=== PATIENT | male | born 1930 | race Caucasian/White ===

== ENCOUNTER 2019-07-12 16:17 | Inpatient (IN) ==
[2019-07-12] MEDS ORDERED: NS 1,000 ML IV ONE ×2 (17:22→18:53)
[2019-07-12 17:35] LABS: INR 1.23; PROTIME 16.2 Seconds (11.0-16.0)
[2019-07-12 17:36] LABS: PTT 34.7 Seconds (22.3-41.8)
[2019-07-12 17:38] LABS: BASO# 0.02 X1000 (0.0-0.2); BASO% 0.1 % (0.0-0.8); HEMATOCRIT 32.5 % (42.0-52.0); HEMOGLOBIN 10.9 g/dL (14.0-18.0); IMM GRAN# 0.11 X1000 (0.0-0.04); IMM GRAN% 0.5 % (0.0-0.5); LYMPH# 0.48 X1000 (1.2-3.4); MCH 30.9 PG (27-31); MCHC 33.5 g/dL (33-37); MCV 92.1 FL (81-99); MONO# 0.43 X1000 (0.11-0.59); MONO% 1.8 % (1.7-9.3); MPV 9.7 FL (7.4-10.4); NEUT# 23.27 X1000 (1.4-6.5); NEUT% 95.6 % (42.2-75.2); PLT 246 X1000 (130-400); RBC 3.53 XMIL (4.7-6.1); RDW 12.2 % (11.5-14.5); WBC 24.31 X1000 (4.8-10.8)
--- NOTE | 2019-07-12 17:40 | Diag Imaging Result Doc PS360 ---
EXAM: CHEST-1 VIEW 07/12/2019 HISTORY: weakness TECHNIQUE: AP portable erect at 1723 COMMENT: There is increased interstitial markings. The heart size and pulmonary vascularity are within normal limits. There are no previous radiographic studies available for comparison, however in comparison with the topogram from the CT of 11/13/2018 there has been no significant change in the appearance of the opacity in the right apex which was described on the CT exam. The basilar interstitial markings were also increased previously. The possibility of superimposed interstitial pulmonary edema cannot be excluded however. IMPRESSION: Questionable pulmonary edema. Electronically signed by Viral Leahy 07/12/2019 5:38 PM
[2019-07-12 17:48] LABS: BILIRUBIN URINE NEGATIVE (NEGATIVE); BLOOD URINE 2+ (NEGATIVE); CLARITY VERY CLOUDY (CLEAR); COLOR YELLOW; GLUCOSE URINE NEGATIVE (NEGATIVE); KETONE URINE NEGATIVE (NEGATIVE); LEUKOCYTES URINE 2+ (NEGATIVE); NITRITE URINE POSITIVE (NEGATIVE); PROTEIN URINE TRACE mg/dL (NEGATIVE); SP GRAVITY URINE 1.005; UROBILINOGEN URINE NORMAL
[2019-07-12 17:56] LABS: ALBUMIN 4.3 g/dL (3.5-5.0); CREATININE 1.2 mg/dL (0.7-1.2); POTASSIUM 4.8 mmol/L (3.5-5.1); TOTAL BILIRUBIN 0.4 mg/dL (0.20-1.00); TOTAL PROTEIN 6.6 g/dL (6.3-8.3)
[2019-07-12 17:59] LABS: URINE BACTERIA 2+ /HFP; URINE EPITHELIAL CELLS <10 /HPF (<10); URINE WBC TNTC /HPF (<10)
[2019-07-12 18:00] LABS: URINE CAST NONE SEEN /LPF; URINE CRYSTAL NONE SEEN /HPF; URINE SOURCE CLEAN CATCH; URINE YEAST NONE SEEN /HPF
[2019-07-12] MEDS ORDERED: ROCEPHIN IV ONE (18:02)
[2019-07-12] MEDS ORDERED: MORPHINE IV PRN (18:53)
[2019-07-12] MEDS ORDERED: TYLENOL PO PRN (18:53)
[2019-07-12] MEDS ORDERED: ZOFRAN IV PRN (18:53)
--- NOTE | 2019-07-12 18:53 | PROVIDER DOCUMENTATION ---
This chart was entered by Anuja Schultz Scribe, acting as scribe for Janeth Cabello MD. HPI-General Adult - General Chief Complaint: Abnormal Lab[s] Stated Complaint: MALE Time Seen by Provider: 07/12/19 16:53 Source: patient Allergies/Adverse Reactions: Patient Allergies Allergy/AdvReac Type Severity Reaction Status Date / Time Penicillins AdvReac Unknown Verified 07/12/19 16:28 Home Medications: Home Medication List Medication Instructions Recorded Confirmed Last Taken Type Doxepin [Sinequan] 1 tab PO DAILY 06/09/19 07/12/19 07/12/19 History 1 tab - History of Present Illness -Gen Adult Nature of Presenting Problems: Patient is a 89 year old male who presents with abnormal labs. Patient states he was seen at his PCP's office for urinary retention this morning. Reports being diagnosed with an UTI 1 month ago and prescribed antibiotics. Denies urinary symptoms currently. Location of Pain/Injury: reports: none Quality of Pain: reports: none Severity: reports: mild Onset/Duration: reports: this morning Timing: reports: still present Context/Activities at Onset: reports: light activity Associated Symptoms: reports: denies symptoms Similar Symptoms Previously?: Yes Recently seen or treated by another doctor?: Yes Review of Systems - Adult - REVIEW OF SYSTEMS - ADULT Constitutional: reports: no symptoms reported. denies: chills, fever, fatique Eyes: reports: no symptoms reported Ears, Nose, Mouth & Throat: reports: no symptoms reported Cardiovascular: reports: no symptoms reported Respiratory: reports: no symptoms reported. denies: cough, shortness of breath, wheezing Gastrointestinal: reports: no symptoms reported Genitourinary: reports: no symptoms reported. denies: dysuria, hematuria, urinary retention Musculoskeletal: reports: no symptoms reported Integumentary: reports: no symptoms reported Neurological: reports: no symptoms reported Psychiatric: reports: no symptoms reported Endocrine: reports: no symptoms reported Hematologic/Lymphatic: reports: no symptoms reported Allergic/Immunologic: reports: no symptoms reported All Other Systems: Reviewed and Negative Past History - Adult - PAST MEDICAL HISTORY-ADULT Review of Records: reports: Old Records Reviewed, Nursing Assessment Review, Medications Reviewed, Social history reviewed & non-contributory. Major Childhood Illnesses: reports: denies history Cardiovascular: reports: denies history Respiratory: reports: denies history Gastrointestinal: reports: denies history Obstetrical/Gynecological: reports: denies history Genitourinary: reports: denies history, other (UTI's) Musculoskeletal: reports: denies history Neurological: reports: denies history Endocrine/Immune: reports: denies history Other Conditions: reports: denies history - PRIOR SURGERIES/PROCEDURES Surgical/Procedure History: reports: appendectomy - IMMUNIZATION STATUS Childhood Immunizations: See Nurse Assessment Flu Vaccine: See Nurse Assessment - FAMILY HISTORY Family History: reviewed, not pertinent - SOCIAL HISTORY Smoking: denies Substance Use: denies Physical Exam-General - PHYSICAL EXAM-ADULT Initial Vital Signs Reviewed: Yes - CONSTITUTIONAL General Appearance: alert, no apparent distress. negative: lethargic - HEAD, EARS, NOSE, MOUTH & THROAT HENMT: normocephalic/atraumatic, moist mucous membranes. negative: angioedema - RESPIRATORY Respiratory: chest non-tender, lungs clear, normal breath sounds. negative: crackles, rhonchi - CARDIOVASCULAR Cardiovascular: normal peripheral pulses, regular rate, rhythm. negative: tachycardia - GASTROINTESTINAL (ABDOMEN) Abdominal Exam: normal bowel sounds, non tender, soft. negative: distended, guarding - MUSCULOSKELETAL Extremity: normal inspection. negative: erythema, swelling - SKIN Integumentary: normal color, normal turgor, warm/dry - NEUROLOGIC Neurologic: grossly normal. negative: aphasia, facial droop - PSYCHIATRIC Psych/Mental Status: normal mood/affect, oriented x 3. negative: anxious Progress - PLAN OF CARE/RESULTS Progress/Plan/Lab Results: Vital Signs - 8 hr 07/12/19 16:21 Temperature 97.5 F L Pulse Rate 71 Respiratory Rate 18 Blood Pressure 149/69 O2 Sat by Pulse Oximetry 95 Orders Category Date Time Status Cardiac Monitoring DIRECTED Care 07/12/19 16:32 Active IV Insertion ORDERED Care 07/12/19 16:32 Active CHEST-1 VIEW [RAD] Stat Exams 07/12/19 16:32 Ordered BLOOD CULTURE [BLDCUL] Stat Lab 07/12/19 16:32 Uncollected CBC WITH DIFF [HEME] Stat Lab 07/12/19 16:32 Uncollected CK PROFILE [SP CHEM] Stat Lab 07/12/19 16:32 Uncollected COMPREHENSIVE METABOLIC PANEL [CHEM] Stat Lab 07/12/19 16:32 Uncollected LACTATE, PLASMA [CHEM] Stat Lab 07/12/19 16:32 Uncollected PROTIME WITH INR [COAG] Stat Lab 07/12/19 16:32 Uncollected PTT [COAG] Stat Lab 07/12/19 16:32 Uncollected TROPONIN T Stat Lab 07/12/19 16:[address] W/POSS RFLX CULT [URINALYSIS] Stat Lab 07/12/19 16:32 Uncollected Oxygen Device Stat Oth 07/12/19 16:32 Active EKG [EKG] Stat Ther 07/12/19 16:34 Ordered Result Diagrams: 07/12/19 16:43 07/12/19 16:43 - XRAY 1 XRAY Study: Chest Impression: See EMR Report ( EXAM: CHEST-1 VIEW 07/12/2019 HISTORY: weakness TECHNIQUE: AP portable erect at 1723 COMMENT: There is increased interstitial markings. The heart size and pulmonary vascularity are within normal limits. There are no previous radiographic studies available for comparison, however in comparison with the topogram from the CT of 11/13/2018 there has been no significant change in the appearance of the opacity in the right apex which was described on the CT exam. The basilar interstitial markings were also increased previously. The possibility of superimposed interstitial pulmonary edema cannot be excluded however. IMPRESSION: Questionable pulmonary edema. Electronically signed by Viral Leahy 07/12/2019 5:38 PM 07/12/19 1738 Interpreting Physician: Viral Leahy MD Dictated Date/Time: 07/12/19 173 cc: Janeth Cabello MD; Dewayne Diaz MD) Departure - Departure Date of Disposition Decision: 07/12/19 Time of Disposition Decision: 18:52 DIAGNOSIS: Fever Qualifiers: Fever type: unspecified Qualified Code(s): R50.9 - Fever, unspecified UTI (urinary tract infection) Qualifiers: Urinary tract infection type: acute pyelonephritis Qualified Code(s): N10 - Acute pyelonephritis Disposition: ADMITTED INPATIENT 09 Certified Medical Emergency: Emergent Condition: Good Referrals and Follow-Ups: Dewayne Diaz MD [Primary Care Provider] - - Critical Care Note This patient required my direct & personal management of CC.: No Attestation - Physician/ SONNY Attestation Patient care was provided by Advanced Practice Provider:: No The physician spent face to face time with patient:: Yes Advanced Practice Provider documentation review:: Supervising physician onsite and consulted in the evaluation and care of this patient. The physician did have a face to face encounter with the patient. This chart was documented by the indicated scribe, (Anuja Schultz Scribe) and accurately reflects the services I performed and decisions made by me, Janeth Cabello MD, as attested by the provider's signature.
[2019-07-13] MEDS ORDERED: ROCEPHIN IV SCH (09:00)
[2019-07-13] MEDS: ROCEPHIN 1 GM in NS 50 ML IV SCH (09:45)
[2019-07-13] MEDS: NS 1,000 ML IV SCH (10:44)
--- NOTE | 2019-07-13 15:30 | HISTORY AND PHYSICAL ---
PRIMARY CARE PHYSICIAN: Dr. Diaz. CHIEF COMPLAINT: Abnormal labs and urinary retention after being seen at his primary care physician's office. HISTORY OF PRESENTING ILLNESS: This is an 89-year-old, male, who presented to [facility] after he was seen at his primary care physician's office yesterday for urinary retention, and had some labs drawn at the primary care physician's office that were abnormal, so he was sent to the emergency room. He had a white blood cell count on arrival of 24.31. Urinalysis with positive nitrites, 2+ white blood cells, 2+ bacteria, and so he was admitted for further evaluation and treatment. PAST MEDICAL HISTORY: UTIs. SURGICAL HISTORY: Appendectomy. FAMILY HISTORY: Reviewed and noncontributory. SOCIAL HISTORY: Lives with family. Denies any tobacco, alcohol, or illicit drug use. ALLERGIES: Penicillin. HOME MEDICATIONS: He takes Tylenol 650 mg p.o. at bedtime, aspirin 81 mg p.o. at bedtime, and doxepin 10 mg p.o. at bedtime. LABORATORY AND DIAGNOSTIC DATA: Showed a white blood cell count of 24.31, hemoglobin 10.9, hematocrit 32.5, platelets 246,000. PT and INR 16.2 and 1.23. Sodium 125, potassium 4.8, chloride 91, CO2 of 22, BUN of 13, creatinine of 1.2, glucose 213. Cardiac enzyme was negative. Plasma lactate of 2. Urinalysis showed positive nitrites, 2+ white blood cells, 2+ bacteria. Chest x-ray showed questionable pulmonary edema. REVIEW OF SYSTEMS: He denied any fever, chills, blurred vision, dizziness, chest pain, coughing, shortness of breath. Denied any abdominal pain, constipation, diarrhea. He was having difficulty with urination. PHYSICAL EXAMINATION: VITAL SIGNS: On arrival, he had a temperature of 97.5 degrees, pulse 71, respirations 18, blood pressure 149/69, saturating 95% on room air. GENERAL: This is an 89-year-old, male, sitting up in the bed, and answers questions appropriately. HEENT: Normocephalic, atraumatic. Normal ENT inspection. Oropharynx and nares are clear. EYES: Pupils are equal, round, and reactive to light and accommodation. Extraocular movements are intact. NECK: Normal inspection. Normal range of motion. LUNGS: Clear to auscultation bilaterally with equal lung expansion and chest wall movement. HEART: Regular rate and rhythm. No murmurs, rubs, or gallops. MUSCULOSKELETAL: He has 5/5 strength x4 extremities. NEUROLOGICAL: The cranial nerves 2-12 appear grossly intact. ASSESSMENT: 1. Urinary tract infection. 2. Leukocytosis secondary to the urinary tract infection. 3. Hyponatremia. PLAN: He will be admitted to the medical unit, placed on a regular diet, placed on Rocephin 1 gram IV q.24. Continue home medications. Normal saline at 75 mL an hour. Recheck CBC and BMP this a.m. and will repeat it again in the morning. Further orders after seen by attending. Dictated by SUE Zeng for Sherif Fried MD cc: SUE Zeng MD Rodney W. Harney, MD
[2019-07-13] MEDS ORDERED: PROSCAR PO ONE (16:22)
[2019-07-13] MEDS: MIRALAX PO SCH (16:57)
--- NOTE | 2019-07-13 19:23 | PROGRESS NOTE ---
DATE: 07/13/2019 SUBJECTIVE/OBJECTIVE: The patient came in with an elevated white count. He does have some dysuria. He has a history of UTI. Not clear that he has a history of BPH, but he is 89. ASSESSMENT/PLAN: I think the bladder scanning revealed 700 postvoid residual on the bladder scan and over 300 on the postvoid residual. I do think he has BPH, which was probably the mechanism of his infection. We will continue Rocephin. I will start Flomax and Proscar. He will need urology follow-up. Home when we get his cultures and clinically he has improved. cc: Sherif Fried MD
[2019-07-13] MEDS: FLOMAX PO SCH (19:52)
[2019-07-13] MEDS: ASPIRIN EC PO SCH (19:52)
[2019-07-13] MEDS: TYLENOL PO SCH (19:53)
[2019-07-13] MEDS: SINEQUAN PO SCH (19:53)
[2019-07-14] MEDS: NS 1,000 ML IV SCH ×2 (00:15→14:27)
[2019-07-14] MEDS: TYLENOL PO SCH ×2 (00:21→20:49)
[2019-07-14] MEDS: ASPIRIN EC PO SCH ×2 (00:21→20:49)
[2019-07-14] MEDS: SINEQUAN PO SCH ×2 (00:21→20:49)
[2019-07-14] MEDS: FLOMAX PO SCH ×2 (00:21→20:49)
[2019-07-14] MEDS ORDERED: TUMS PO PRN (01:16)
[2019-07-14 05:32] LABS: BASO# 0.02 X1000 (0.0-0.2); BASO% 0.2 % (0.0-0.8); EOS% 0.9 % (0.0-10.0); HEMATOCRIT 29.7 % (42.0-52.0); HEMOGLOBIN 9.6 g/dL (14.0-18.0); IMM GRAN# 0.02 X1000 (0.0-0.04); IMM GRAN% 0.2 % (0.0-0.5); LYMPH# 1.76 X1000 (1.2-3.4); LYMPH% 15.7 % (20.5-51.1); MCHC 32.3 g/dL (33-37); MCV 92.8 FL (81-99); MONO# 0.99 X1000 (0.11-0.59); MONO% 8.8 % (1.7-9.3); MPV 9.6 FL (7.4-10.4); NEUT# 8.31 X1000 (1.4-6.5); NEUT% 74.2 % (42.2-75.2); PLT 230 X1000 (130-400); RDW 12.7 % (11.5-14.5)
[2019-07-14 05:46] LABS: AGAP 9; BUN 16 mg/dL (8-22); CALCIUM 8.7 mg/dL (8.8-10.2); CHLORIDE 101 mmol/L (98-107); COSMO 269; CREATININE 0.9 mg/dL (0.7-1.2); ESTIMATED GFR > 60; GLUCOSE 94 mg/dL (70-104); POTASSIUM 4.5 mmol/L (3.5-5.1); SODIUM 134 mmol/L (136-145); TCO2 25 mmol/L (25-35)
[2019-07-14] MEDS ORDERED: MORPHINE IV PRN (07:54)
[2019-07-14] MEDS: MIRALAX PO SCH (09:57)
[2019-07-14] MEDS: ROCEPHIN 1 GM in NS 50 ML IV SCH (09:57)
[2019-07-14] MEDS: PROSCAR PO SCH (09:57)
--- NOTE | 2019-07-14 18:31 | PROGRESS NOTE ---
DATE: 07/14/2019 SUBJECTIVE: The patient has no major complaints. OBJECTIVE: Blood pressure 149/78, heart rate 62, respiratory rate 18, temperature 97.5 degrees, 96% on room air.Cardiovascular: Regular rate and rhythm. Pulmonary: Bilateral breath sounds, clear to auscultation. GI: Soft, nontender, nondistended. Bowel sounds were positive. He has a Westbrook in place. LABORATORY DATA: White count 11, hemoglobin and hematocrit 9 and 29, platelets 230,000. Basic was normal. Urine culture is gram-negative rods. ASSESSMENT AND PLAN: Problem list: 1. Gram-negative andrea cystitis due to urinary retention. The patient is doing better. We are waiting on his final culture results and he should be able to go home, but I do think he needs Urology followup, so we will set that up. He is currently on Flomax and Proscar. We will monitor. 2. Disposition: Hopefully home tomorrow, but likely with a Westbrook. cc: Sherif Fried MD
[2019-07-14] MEDS ORDERED: PERICOLACE PO ONE (23:34)
[2019-07-15 05:35] LABS: BASO# 0.03 X1000 (0.0-0.2); BASO% 0.3 % (0.0-0.8); EOS# 0.36 X1000 (0.0-0.7); EOS% 4.1 % (0.0-10.0); HEMATOCRIT 30.8 % (42.0-52.0); IMM GRAN# 0.02 X1000 (0.0-0.04); IMM GRAN% 0.2 % (0.0-0.5); LYMPH# 1.92 X1000 (1.2-3.4); LYMPH% 22.1 % (20.5-51.1); MCHC 32.5 g/dL (33-37); MCV 92.5 FL (81-99); MONO# 0.99 X1000 (0.11-0.59); MONO% 11.4 % (1.7-9.3); MPV 9.9 FL (7.4-10.4); NEUT# 5.36 X1000 (1.4-6.5); NEUT% 61.9 % (42.2-75.2); PLT 252 X1000 (130-400); RBC 3.33 XMIL (4.7-6.1); RDW 12.8 % (11.5-14.5); WBC 8.68 X1000 (4.8-10.8)
[2019-07-15 05:45] LABS: AGAP 8; BUN 15 mg/dL (8-22); CALCIUM 8.6 mg/dL (8.8-10.2); CHLORIDE 103 mmol/L (98-107); COSMO 272; CREATININE 0.9 mg/dL (0.7-1.2); ESTIMATED GFR > 60; GLUCOSE 93 mg/dL (70-104); POTASSIUM 4.4 mmol/L (3.5-5.1); SODIUM 136 mmol/L (136-145); TCO2 25 mmol/L (25-35)
[2019-07-15] MEDS: ROCEPHIN 1 GM in NS 50 ML IV SCH (08:28)
[2019-07-15] MEDS: PROSCAR PO SCH (08:28)
[2019-07-15] MEDS: MIRALAX PO SCH (08:29)
[2019-07-15] MEDS ORDERED: CITRATE OF MAGNESIA PO ONE (12:55)
[2019-07-15] MEDS: INVANZ 1 GM/NS 1 GM/50 ML IVPB IV SCH (13:22)
--- NOTE | 2019-07-15 15:04 | PROGRESS NOTE ---
DATE: 07/15/2019 SUBJECTIVE: Patient has no major complaints. OBJECTIVE: Vitals: Blood pressure is 115/67, heart rate of 81, respiratory rate of 18, temperature 97.7 degrees. Cardiovascular: Regular rate and rhythm. Pulmonary: Bilateral breath sounds clear to auscultation. GI: Soft, nontender, nondistended. Bowel sounds are positive. LABORATORY DATA: White count 8, hemoglobin and hematocrit 10 and 30, platelets 252. Basic was normal. PROBLEM LIST: 1. Extended spectrum beta-lactamase Escherichia coli urinary tract infection. It is only sensitive to the handful of antibiotics. I have put him on Invanz. He is allergic to penicillin. So we will continue to monitor. He will need IV antibiotics. There is really not any oral options. Macrobid is a possibility, but I do feel this is a complicated urinary tract infection since he had urinary retention. So we are going to use IV antibiotics for at least 7 to 10 days, possibly up to 2 weeks. I will discuss the case tomorrow with Dr. Lomax. 2. Urinary retention. He has a Westbrook in place. He is on Proscar and Flomax, and we will arrange follow-up with Dr. Clemente. DISPOSITION: I think if we can get home IV set up tomorrow and PICC, then he should be able to go home. cc: Sherif Fried MD
[2019-07-15] MEDS: ASPIRIN EC PO SCH (20:17)
[2019-07-15] MEDS: SINEQUAN PO SCH (20:17)
[2019-07-15] MEDS: TYLENOL PO SCH (20:17)
[2019-07-15] MEDS: FLOMAX PO SCH (20:17)
[2019-07-16 05:54] LABS: BASO# 0.02 X1000 (0.0-0.2); BASO% 0.4 % (0.0-0.8); EOS# 0.45 X1000 (0.0-0.7); EOS% 7.9 % (0.0-10.0); HEMATOCRIT 29.2 % (42.0-52.0); HEMOGLOBIN 9.4 g/dL (14.0-18.0); IMM GRAN# 0.01 X1000 (0.0-0.04); IMM GRAN% 0.2 % (0.0-0.5); LYMPH# 1.51 X1000 (1.2-3.4); LYMPH% 26.5 % (20.5-51.1); MCHC 32.2 g/dL (33-37); MCV 93.3 FL (81-99); MONO# 0.75 X1000 (0.11-0.59); MONO% 13.2 % (1.7-9.3); MPV 9.9 FL (7.4-10.4); NEUT# 2.96 X1000 (1.4-6.5); NEUT% 51.8 % (42.2-75.2); PLT 243 X1000 (130-400); RBC 3.13 XMIL (4.7-6.1); RDW 12.5 % (11.5-14.5)
[2019-07-16 06:09] LABS: AGAP 7; BUN 17 mg/dL (8-22); CALCIUM 8.9 mg/dL (8.8-10.2); CHLORIDE 102 mmol/L (98-107); COSMO 271; CREATININE 0.9 mg/dL (0.7-1.2); ESTIMATED GFR > 60; GLUCOSE 93 mg/dL (70-104); POTASSIUM 4.5 mmol/L (3.5-5.1); SODIUM 135 mmol/L (136-145); TCO2 27 mmol/L (25-35)
[2019-07-16] MEDS: PROSCAR PO SCH (08:23)
[2019-07-16] MEDS: MIRALAX PO SCH (08:23)
[2019-07-16 12:00] VITALS: BP 133/61
[2019-07-16] MEDS: INVANZ 1 GM/NS 1 GM/50 ML IVPB IV SCH (13:20)
[2019-07-16] MEDS ORDERED: NS 250 ML ONE (15:42)
--- NOTE | 2019-07-17 08:10 | DISCHARGE SUMMARY ---
ADMISSION DATE: 07/15/2019 DISCHARGE DATE: 07/16/2019 DISCHARGE DIAGNOSES: 1. Extended spectrum beta-lactamase Escherichia coli urinary tract infection. 2. Complicated urinary tract infection. 3. Benign prostatic hypertrophy with urinary retention. CONSULTATIONS: None. HISTORY AND HOSPITAL COURSE: This is an 89-year-old male who came in from Dr. Diaz's office with urinary retention and white count of 24,000. UA was abnormal. He has had urinary tract infections before. He was empirically placed on Rocephin, and he had a postvoid residual of initially 700, then 300. Westbrook catheter was placed. He slowly improved over time. His culture grew out Escherichia coli, which was pansensitive. Now curiously, it was not pansensitive; it was an extended spectrum beta-lactamase, but it was less than 0.25 against imipenem. He was switched to Invanz, and the plan was to discharge him on IV Invanz for a total of 2 weeks. He will get a PICC line placed on 07/16/2019, and go home on IV Invanz. Follow up with Dr. Lomax, who I did call prior to discharge, and he wants to see him in about a week, and manage him from there. Also, urology, he will need to follow up with them to take his catheter out and do a voiding trial. He is currently on Proscar and Flomax. DISCHARGE MEDICATIONS: Aspirin 81 daily, doxepin 10 daily, Tylenol, vitamin E, Flomax 0.4 daily, Invanz 1 gram IV daily for 2 weeks, Proscar 5 daily. DISCHARGE CONDITION: Stable. cc: MD Dr. Emily Vega
== END 2019-07-16 18:43 | disposition home health service (06) | DRG 690 ==
LOC: P.MEDSURG 16:17 → P.ED 16:17
PROVIDERS: ATTEND Internal Medicine